=== PATIENT | female | born 1990 | race African-American/Black ===

== ENCOUNTER 2021-03-04 14:21 | Inpatient (IN) | payer MEDICAID ==
[~2021-03-04] VITALS: Ht 162.6 cm; Wt 61.2 kg
[2021-03-04] MEDS ORDERED: ACETAMINOPHEN 325 MG TABLET PO PRN (15:45)
[2021-03-04] MEDS ORDERED: MAGNESIUM HYDROXIDE SUSPENSION 30 ML UDCUP PO PRN (15:45)
[2021-03-04] MEDS ORDERED: LOPERAMIDE HCL 2 MG CAPSULE PO PRN (15:45)
[2021-03-04] MEDS ORDERED: GuaiFENesin/D-METHORPHAN [SUGAR-FREE] 200-20MG/10 ML SYRUP UDCUP PO PRN (15:45)
[2021-03-04] MEDS ORDERED: QUEtiapine FUMARATE 100 MG TABLET PO PRN (15:45)
[2021-03-04] MEDS ORDERED: PROMETHAZINE HCL 25 MG TABLET PO PRN (15:45)
[2021-03-04] MEDS ORDERED: HydrOXYzine PAMOATE 50 MG CAPSULE PO PRN (15:45)
[2021-03-04] MEDS ORDERED: TUBERCULIN, PURIFIED PROTEIN DERIVATIVE 5 TU/0.1 ML SYRINGE ID ONE (15:45)
[2021-03-04] MEDS ORDERED: MAG HYDROX/AL HYDROX/SIMETH ES 30 ML SUSPENSION UDCUP PO PRN (15:45)
[2021-03-04] MEDS ORDERED: ZOLPIDEM TARTRATE 10 MG TABLET PO PRN (15:45)
[2021-03-04 20:33] VITALS: BP 118/70
[2021-03-04] MEDS: THIAMINE 100 MG TABLET PO SCH (20:49)
[2021-03-04] MEDS: MELATONIN 5 MG TABLET PO SCH (21:00)
[2021-03-05] MEDS: LORazepam 2 MG TABLET PO PRN (01:32)
[2021-03-05 04:05] VITALS: BP 113/64
[2021-03-05 08:14] VITALS: BP 116/70
[2021-03-05] MEDS: OMEGA-3/DHA/EPA/FISH OIL 1,000 MG CAPSULE PO SCH (08:14)
[2021-03-05] MEDS: NALTREXONE HCL 50 MG TABLET PO SCH (08:14)
[2021-03-05] MEDS: THIAMINE 100 MG TABLET PO SCH ×2 (08:14→16:52)
[2021-03-05] MEDS: MULTIVITAMINS WITH MINERALS, THERAPEUTIC TABLET PO SCH (08:14)
[2021-03-05] MEDS: FOLIC ACID 1 MG TABLET PO SCH (08:14)
[2021-03-05] MEDS ORDERED: SERTRALINE HCL 50 MG TABLET PO SCH (09:00)
[2021-03-05 16:07] VITALS: BP 126/76
[2021-03-05] MEDS: MELATONIN 5 MG TABLET PO SCH (20:24)
[2021-03-06 05:39] VITALS: BP 121/72
[2021-03-06 08:14] VITALS: BP 122/73
[2021-03-06] MEDS ORDERED: BuPROPion HCL XL 150 MG ER TABLET PO SCH (09:00)
[2021-03-06] MEDS ORDERED: ARIPiprazole 5 MG TABLET PO SCH (09:00)
[2021-03-06] MEDS: FOLIC ACID 1 MG TABLET PO SCH (09:08)
[2021-03-06] MEDS: THIAMINE 100 MG TABLET PO SCH ×2 (09:08→16:45)
[2021-03-06] MEDS: OMEGA-3/DHA/EPA/FISH OIL 1,000 MG CAPSULE PO SCH (09:08)
[2021-03-06] MEDS: MULTIVITAMINS WITH MINERALS, THERAPEUTIC TABLET PO SCH (09:09)
[2021-03-06] MEDS: NALTREXONE HCL 50 MG TABLET PO SCH (09:09)
[2021-03-06] MEDS ORDERED: BUPR-49 PO (15:22)
[2021-03-06] MEDS ORDERED: OMEG-135 PO (15:22)
[2021-03-06] MEDS ORDERED: NALT50TA PO (15:22)
[2021-03-06] MEDS ORDERED: ARIP5TAB37 PO (15:22)
[2021-03-06] MEDS ORDERED: MELA5TAB40 PO (15:22)
[2021-03-06 16:27] VITALS: BP 119/78
[2021-03-06] MEDS: LORazepam 2 MG TABLET PO PRN (16:45)
[2021-03-06] MEDS: MELATONIN 5 MG TABLET PO SCH (20:30)
[2021-03-07 05:32] VITALS: BP 119/73
[2021-03-07] MEDS ORDERED: BuPROPion HCL XL 150 MG ER TABLET PO SCH (09:00)
== END 2021-03-07 07:14 | disposition home or self-care (01) | DRG 751 ==
LOC: B3A 20:19
PROVIDERS: ADMIT Psychiatry & Neurology Psychiatry; ATTEND Psychiatry & Neurology Psychiatry
DX: F33.2 Major depressive disorder, recurrent severe without psychotic features (principal); Z91.14 Patient's other noncompliance with medication regimen; R45.851 Suicidal ideations; F12.90 Cannabis use, unspecified, uncomplicated; K50.90 Crohn's disease, unspecified, without complications; T43.221A Poisoning by selective serotonin reuptake inhibitors, accidental (unintentional), initial encounter; Z55.9 Problems related to education and literacy, unspecified; Z59.9 Problem related to housing and economic circumstances, unspecified; Z65.3 Problems related to other legal circumstances; Z88.2 Allergy status to sulfonamides; Y92.89 Other specified places as the place of occurrence of the external cause; Z79.899 Other long term (current) drug therapy
CPT/HCPCS: Q9967; Z7610